=== PATIENT | female | born 1930 | race Asian ===

== ENCOUNTER 2018-12-21 22:16 | Inpatient (IN) | payer MEDICARE, BC ==
[2018-12-21] MEDS: DEXTROSE 5%-0.45% NACL 1,000 ML IV (23:50)
[2018-12-22] MEDS ORDERED: NACL 0.9% 3 ML SYG IV
[2018-12-22] MEDS ORDERED: HYDROCODONE/APAP (5/325) TAB PO
[2018-12-22] MEDS ORDERED: ONDANSETRON 4 MG INJ IV
[2018-12-22] MEDS ORDERED: ALBUTEROL/IPRATROPIUM (NEB) 3 ML AMP HHN
[2018-12-22 00:55] LABS: ADD MAN DIFF? NO
[2018-12-22 00:57] LABS: WHITE BLOOD COUNT 5.9 10^3/ul (4.8-10.8)
[2018-12-22 00:57] LABS: BASOPHILS % 0.7 % (0.0-2.0); EOSINOPHILS # 0.1 10^3/ul (0.0-0.5); EOSINOPHILS % 1.4 % (0.0-7.0); HEMATOCRIT 28.9 % (37.0-47.0); HEMOGLOBIN 10.2 g/dl (12.0-16.0); LYMPHOCYTES # 1.2 10^3/ul (0.8-2.9); LYMPHOCYTES % 21.2 % (15.0-51.0); MEAN CORPUSCULAR HEMOGLOBIN 32.4 pg (29.0-33.0); MEAN CORPUSCULAR HGB CONC 35.3 g/dl (32.0-37.0); MEAN CORPUSCULAR VOLUME 91.7 fl (82.0-101.0); MEAN PLATELET VOLUME 11.5 fl (7.4-10.4); MONOCYTE # 0.5 10^3/ul (0.3-0.9); MONOCYTES % 8.2 % (0.0-11.0); PLATELET COUNT 145 10^3/UL (140-415); RED BLOOD COUNT 3.15 10^6/ul (4.20-5.40); RED CELL DISTRIBUTION WIDTH 15.9 % (11.5-14.5)
[2018-12-22] MEDS ORDERED: GLUCOSE GEL 15 GRAM TUBE PO ×2 (01:00)
[2018-12-22] MEDS: INSULIN ASPART [NOVOLOG] 3 ML PEN SC ×6 (01:00→21:05)
[2018-12-22] MEDS ORDERED: GLUCAGON 1 MG INJ IM (01:00)
[2018-12-22] MEDS ORDERED: DEXTROSE 50% 50 ML SYRINGE IV ×2 (01:00)
[2018-12-22] MEDS ORDERED: GLUCOSE GEL 15 GRAM TUBE BUCCAL (01:00)
[2018-12-22 01:17] LABS: ALANINE AMINOTRANSFERASE 212 IU/L (13-69); ALBUMIN 2.9 g/dl (3.3-4.9); ALBUMIN/GLOBULIN RATIO 0.72; ALKALINE PHOSPHATASE 1059 IU/L (42-121); ANION GAP 9 (5-13); ASPARTATE AMINO TRANSFERASE 332 IU/L (15-46); BILIRUBIN,INDIRECT 0.9 mg/dl (0-1.1); BILIRUBIN,TOTAL 4.5 mg/dl (0.2-1.3); BLOOD UREA NITROGEN 14 mg/dl (7-20); CARBON DIOXIDE 25 mmol/L (21-31); CHLORIDE 103 mmol/L (97-110); CREATININE 0.53 mg/dl (0.44-1.00); GLUCOSE 129 mg/dl (70-220); POTASSIUM 3.2 mmol/L (3.5-5.1); SODIUM 137 mmol/L (135-144); TOTAL PROTEIN 6.9 g/dl (6.1-8.1)
[2018-12-22] MEDS: POTASSIUM CHLORIDE 100 ML IVPB (03:49)
[2018-12-22] MEDS: POTASSIUM CHLORIDE (SR) 20 MEQ TAB PO (05:36)
[2018-12-22] MEDS: ACETAMINOPHEN 325 MG TAB PO (05:37)
[2018-12-22] MEDS ORDERED: CARBIDOPA/LEVODOPA 50-200 (CR) TAB PO (09:00)
[2018-12-22] MEDS: AMLODIPINE 10 MG TAB PO (09:58)
[2018-12-22] MEDS: CARBIDOPA/LEVODOPA 25-100 (CR) TAB PO ×3 (09:59→21:03)
[2018-12-22] MEDS: HEPARIN 5,000 UNIT/1 ML VIAL SC ×2 (10:19→21:06)
[2018-12-22] MEDS: DEXTROSE 5%-0.45% NACL 1,000 ML IV (14:08)
[2018-12-22] MEDS: IOHEXOL 14.3 MG(I)/ML (ADULT) BTL PO (18:00)
[2018-12-22] MEDS: SOD CHLORIDE 0.9% 100 ML (18:21)
[2018-12-22] MEDS: IODIXANOL LOCM 100 ML BTL (18:21)
[2018-12-23] MEDS: INSULIN ASPART [NOVOLOG] 3 ML PEN SC ×6 (01:00→21:57)
[2018-12-23 06:54] LABS: ALANINE AMINOTRANSFERASE 26 IU/L (13-69); ALBUMIN 3.2 g/dl (3.3-4.9); ALBUMIN/GLOBULIN RATIO 0.76; ALKALINE PHOSPHATASE 1043 IU/L (42-121); ANION GAP 10 (5-13); ASPARTATE AMINO TRANSFERASE 254 IU/L (15-46); BILIRUBIN,TOTAL 4.1 mg/dl (0.2-1.3); BLOOD UREA NITROGEN 10 mg/dl (7-20); CALCIUM 8.3 mg/dl (8.4-10.2); CARBON DIOXIDE 25 mmol/L (21-31); CHLORIDE 102 mmol/L (97-110); CREATININE 0.55 mg/dl (0.44-1.00); GLUCOSE 116 mg/dl (70-220); SODIUM 137 mmol/L (135-144); TOTAL PROTEIN 7.4 g/dl (6.1-8.1)
[2018-12-23 07:01] LABS: POTASSIUM 2.9 mmol/L (3.5-5.1)
[2018-12-23 07:14] LABS: HEPATITIS B SURFACE ANTIGEN NEGATIVE (NEGATIVE)
[2018-12-23 07:32] LABS: HEPATITIS C VIRAL ANTIBODY NEGATIVE (NEGATIVE)
[2018-12-23] MEDS: CARBIDOPA/LEVODOPA 25-100 (CR) TAB PO ×3 (08:16→21:28)
[2018-12-23] MEDS: AMLODIPINE 10 MG TAB PO (08:17)
[2018-12-23] MEDS: HEPARIN 5,000 UNIT/1 ML VIAL SC ×2 (08:54→21:29)
[2018-12-23] MEDS: POTASSIUM CHLORIDE (SR) 20 MEQ TAB PO (10:24)
[2018-12-23] MEDS: POTASSIUM CHLORIDE 100 ML IVPB ×2 (10:51→15:43)
[2018-12-23] MEDS: MEMANTINE 10 MG TAB PO (15:43)
[2018-12-23] MEDS ORDERED: INSULIN ASPART [NOVOLOG] 3 ML PEN SC (20:00)
[2018-12-23] MEDS: INSULIN GLARGINE [LANTus] (100 UNITS/ML) SYG SC (21:52)
[2018-12-23] MEDS: Insulin NOVOLOG SS MILD Algorithm (SS with meals and bedtime) SC (21:52)
[2018-12-23 22:55] LABS: GLUCOSE 433 mg/dl (70-220)
[2018-12-24] MEDS: ACCU-CHEK XX (02:57)
[2018-12-24 06:56] LABS: INR 1.04; PROTIME 13.7 Sec (11.9-14.9); PT RATIO 1.1
[2018-12-24] MEDS: Insulin NOVOLOG SS MILD Algorithm (SS with meals and bedtime) SC ×3 (07:25→16:42)
[2018-12-24 07:29] LABS: ALANINE AMINOTRANSFERASE 20 IU/L (13-69); ALBUMIN 2.7 g/dl (3.3-4.9); ALBUMIN/GLOBULIN RATIO 0.77; ALKALINE PHOSPHATASE 805 IU/L (42-121); ANION GAP 7 (5-13); ASPARTATE AMINO TRANSFERASE 189 IU/L (15-46); BILIRUBIN,INDIRECT 0.8 mg/dl (0-1.1); BILIRUBIN,TOTAL 2.9 mg/dl (0.2-1.3); BLOOD UREA NITROGEN 12 mg/dl (7-20); CALCIUM 8.1 mg/dl (8.4-10.2); CARBON DIOXIDE 22 mmol/L (21-31); CHLORIDE 108 mmol/L (97-110); CREATININE 0.45 mg/dl (0.44-1.00); GLUCOSE 131 mg/dl (70-220); POTASSIUM 3.6 mmol/L (3.5-5.1); SODIUM 137 mmol/L (135-144); TOTAL PROTEIN 6.2 g/dl (6.1-8.1)
[2018-12-24 07:54] LABS: ALPHA FETOPROTEIN 1.69 IU/L (0.00-7.21)
[2018-12-24] MEDS: CARBIDOPA/LEVODOPA 25-100 (CR) TAB PO ×2 (08:39→12:14)
[2018-12-24] MEDS: AMLODIPINE 10 MG TAB PO (08:40)
[2018-12-24] MEDS: HEPARIN 5,000 UNIT/1 ML VIAL SC (08:58)
[2018-12-24] MEDS: MEMANTINE 10 MG TAB PO (12:10)
[2018-12-26 19:36] LABS: ANA SCREEN POSITIVE (NEGATIVE)
[2018-12-27 10:17] LABS: CHENODEOXYCHOLIC ACID 15.2 umol/L (< OR = 3.1); DEOXYCHOLIC ACID <0.5 umol/L (< OR = 2.4); TOTAL BILE ACIDS 44.2 umol/L (< OR = 6.8)
[2018-12-27 12:38] LABS: MITOCHONDRIAL TB POSITIVE (NEGATIVE); SMOOTH MUSCLE AB SCREEN NEGATIVE (NEGATIVE)
[2018-12-27 21:12] LABS: ANA PATTERN NUCLEAR ENVELOPE
== END 2018-12-24 17:32 | DRG 445 ==
LOC: TEL 22:16
DX: K80.60 Calculus of gallbladder and bile duct with cholecystitis, unspecified, without obstruction (principal); J98.19 Other pulmonary collapse; R17 Unspecified jaundice; D63.8 Anemia in other chronic diseases classified elsewhere; E11.9 Type 2 diabetes mellitus without complications; E87.6 Hypokalemia; G20 Parkinson's disease; F02.80 Dementia in other diseases classified elsewhere, unspecified severity, without behavioral disturbance, psychotic disturbance, mood disturbance, and anxiety; I10 Essential (primary) hypertension; K21.9 Gastro-esophageal reflux disease without esophagitis; K74.60 Unspecified cirrhosis of liver; R74.0 Nonspecific elevation of levels of transaminase and lactic acid dehydrogenase [LDH]; E80.6 Other disorders of bilirubin metabolism; Z22.322 Carrier or suspected carrier of Methicillin resistant Staphylococcus aureus; Z86.73 Personal history of transient ischemic attack (TIA), and cerebral infarction without residual deficits; Z79.02 Long term (current) use of antithrombotics/antiplatelets; Z79.4 Long term (current) use of insulin; Z79.83 Long term (current) use of bisphosphonates
CPT/HCPCS: 74177; 80053; 82105; 82247; 82248; 82947; 82962; 83789; 85025; 85610; 86038; 86255; 86709; 86803; 87081; 87340; 97161

== ENCOUNTER 2019-02-03 11:07 | Emergency (ER) | payer MEDICARE, BC ==
[2019-02-03] MEDS: ENOXAPARIN 100 MG/ML SYG SC (12:04)
== END 2019-02-03 12:44 | disposition home or self-care (01) ==
LOC: E/R 11:07
DX: I82.403 Acute embolism and thrombosis of unspecified deep veins of lower extremity, bilateral (principal); G20 Parkinson's disease; I10 Essential (primary) hypertension; E11.9 Type 2 diabetes mellitus without complications; Z79.01 Long term (current) use of anticoagulants; Z79.4 Long term (current) use of insulin; Z86.73 Personal history of transient ischemic attack (TIA), and cerebral infarction without residual deficits
CPT/HCPCS: 96372; 99284-25; J1650